=== PATIENT | female | born 1930 | race Caucasian/White ===

== ENCOUNTER 2016-12-15 17:52 | Emergency (ER) | payer OTHER ==
[2016-12-15] MEDS ORDERED: SODIUM CHLORIDE 0.9% (FLUSH) 10 ML SYG IV PRN (18:08)
[2016-12-15] MEDS ORDERED: ASPIRIN TABLET 325 MG TAB PO ONE (18:08)
--- NOTE | 2016-12-15 18:15 | ED.PDOC ---
History of Present Illness - General Chief Complaint: Chest Pain/[place] Time Seen by Provider: 12/15/16 18:08 Source: patient, family - History of Present Illness Initial Comments: SHE HAS KNOWN CAD WITH A BYPASS 8 YEARS AGO. SHE TRAVELED FROM [place] TODAY AND STARTED WITH SOME ABDOMINAL PAIN THAT THEN RADIATED TO THE CHEST. SHE HAS NTG BUT TWO WEEKS AGO IN [facility] NTG MADE HER VERY HYPOTENSIVE. SHE IS SOMEWHAT AFRAID TO TAKE IT. THE CP IS PRESSURE TYPE W/O RADIATION ASSOCIATED WITH MILD SOB. SHE RATES THE PAIN AT A 6/10. SHE ALSO HAS EPIGASTRIC PAIN 6/10. DENIES ANY DIAPHORESIS. Timing/Duration: 1-3 hours Severity/Quality: burning, tightness Location: substernal, epigastric, abdomen Chest Pain Radiation: no radiation Activities at Onset: rest Prior Chest Pain/Cardiac Workup: angina, heart attack, other - KNOWN CAD WITH CORONARY BYPASS SURGERY. SEES HER RENEWALS REPRESENTATIVE IN [place] FREQUENTLY. Improving Factors: nothing Worsening Factors: nothing Nitro Today/Relief: no nitro taken today Aspirin Treatment Today: no aspirin today Associated Symptoms: abdominal pain, fatigue, heartburn, shortness of breath Allergies/Adverse Reactions: Allergies NO KNOWN ALLERGY Allergy (Verified 12/15/16 18:08) Home Medications: Ambulatory Orders Amiodarone HCl 200 mg PO DAILY 12/15/16 Apixaban [Eliquis] 2.5 mg PO DAILY 12/15/16 Furosemide [Lasix] 40 mg PO DAILY 12/15/16 Isosorbide Dinitrate 30 mg PO DAILY 12/15/16 Levothyroxine Sodium 75 mcg PO DAILY 12/15/16 Lisinopril 2.5 mg PO DAILY 12/15/16 Multiple Vitamins W/ Minerals [Hair Skin and Nails Formu] 1 tab PO DAILY Potassium Chloride [Potassium Chloride ER] 20 meq PO DAILY 12/15/16 Simvastatin 40 mg PO DAILY 12/15/16 Review of Systems - Review of Systems Constitutional: Denies: chills, fever EENTM: States: no symptoms reported Respiratory: States: short of breath Cardiology: States: chest pain. Denies: edema, palpitations, syncope Gastrointestinal/Abdominal: States: no symptoms reported Genitourinary: States: no symptoms reported Musculoskeletal: States: no symptoms reported Skin: States: no symptoms reported Neurological: States: no symptoms reported Endocrine: States: no symptoms reported Hematologic/Lymphatic: States: no symptoms reported All other Systems: Reviewed and Negative, No Change from Baseline Past Medical History (General) - Patient Medical History Hx Cardiac Disorders: Yes - Social History Hx Tobacco Use: No Hx Alcohol Use: No Family Medical History - Family History Mother Living Status: Cause of : Cardiac Hx Cardiac Disease: Yes Physical Exam - Physical Exam General Appearance: Alert, Well Developed, Well Groomed, Other - IN MILD DISTRESS Eyes, Ears, Nose, Throat Exam: PERRL/EOMI, normal ENT inspection Neck: non-tender, full range of motion, normal inspection Respiratory: chest non-tender, lungs clear, no respiratory distress Cardiovascular/Chest: normal peripheral pulses, regular rate, rhythm, no edema, no gallop Peripheral Pulses: radial,right: 2+, radial,left: 2+ Gastrointestinal/Abdominal: normal bowel sounds, soft, no organomegaly, no pulsatile mass Rectal Exam: deferred Extremity: normal range of motion Neurologic: alert, oriented x 3 Skin Exam: normal color, warm/dry Lymphatic: no adenopathy Progress - Progress Progress: 12/15/16 18:22 THE EKG: IMPRESSION: SINUS RHYTHM, NO ACUTE INJURY PATTERN. THERE ARE NO TRACES TO COMPARE WITH 12/15/16 22:13 the lab is reported abd the imaging too. HER CREATININE WAS 1.39 AND THE BUN WAS 38. RST OF THE CMP WAS NORMAL. H/H OF 14.8/45.2, TOPONIN I OF 0.03, UA WITH 5-10 WBC'S. THE CXR WITH A WIDENED MEDIASTINUM. I DISCUSSED THE CASE WITH THE FAMILY AND THEY ARE NOT AWARE OF AN AORTIC ANUERYSM. BECSUE HER CREATININE AND BUN WERE ELEVATED A CT OF THE CHEST WAS PERFORMED W/O DYE. THE CT REVEALS AN ANEURYSM OF THE ASCENDING AORTA OF 4.9 CM AND AN INFRA-RENAL ANEURYSM MEASURING 4.2 CM. 12/15/16 22:30 I HAVE SPENT SOME TIME TALKING TO THE FAMILY AND TO THE PATIENT ABOUT THE FINDINGS. THEY ARE AWARE AND THE PATIENT VOICES THAT SHE WILL NOT HAVE ANY MOR SURGERY ON HER CHEST. SHE WILL CONTINUE WITH CONSERVATIVE TREATMENT ONLY. SHE HAS A RENEWALS REPRESENTATIVE IN [facility] AND SHE WILL FOLLOW NEXT WEEK WITH HER. - Results/Orders Results/Orders: LABORATORY AND IMAGING ARE REPORTED. THE CHEST X RAY HAS A WIDENED MEDIASTINUM THAT COULD BE A TORTOUS AORTA OR AN ANEURYSM. WILL OBTAIN A CT ANGIO OF THE CHEST. - EKG/XRAY/CT EKG: Sinus, no ST T wave changes Comments: HR OF 71, CA INTERVAL OF 200, QRS OF 92, QTC OF 436, AXIS OF 16 DEGREES. Departure - Departure Clinical Impression: Thoracic aortic aneurysm Qualifiers: Presence of rupture: without rupture Qualified Code(s): I71.2 - Thoracic aortic aneurysm, without rupture Chest pain Qualifiers: Chest pain type: unspecified Qualified Code(s): R07.9 - Chest pain, unspecified Abdominal pain Qualifiers: Abdominal location: epigastric Qualified Code(s): R10.13 - Epigastric pain Time of Disposition: 22:34 Disposition: Discharge to Home or Self Care Condition: Fair Departure Forms: ED Discharge - Pt. Copy, Patient Portal Self Enrollment Diet: resume usual diet Home Medications: Ambulatory Orders Amiodarone HCl 200 mg PO DAILY 12/15/16 Apixaban [Eliquis] 2.5 mg PO DAILY 12/15/16 Furosemide [Lasix] 40 mg PO DAILY 12/15/16 Isosorbide Dinitrate 30 mg PO DAILY 12/15/16 Levothyroxine Sodium 75 mcg PO DAILY 12/15/16 Lisinopril 2.5 mg PO DAILY 12/15/16 Multiple Vitamins W/ Minerals [Hair Skin and Nails Formu] 1 tab PO DAILY Potassium Chloride [Potassium Chloride ER] 20 meq PO DAILY 12/15/16 Simvastatin 40 mg PO DAILY 12/15/16 Additional Instructions: FOLLOW UP WITH YOUR RENEWALS REPRESENTATIVE NEXT WEEK
--- NOTE | 2016-12-15 18:28 | RAD ---
PROCEDURE: XR CHEST 1 VIEW HISTORY: CHEST PAIN COMPARISON: None TECHNIQUE: Single projection of the chest was done. FINDINGS: There is median sternotomy. . There are no discrete airspace infiltrates, pneumothoraces or pleural effusions. Multiple benign calcified granulomas are seen in the bilateral lung sotelo. The pulmonary vascularity is normal. Atherosclerotic changes in the thoracic aorta are noted, with suggestion of an aneurysm of the ascending thoracic aorta. The patient is slightly rotated to the right side The cardiomediastinal silhouette is otherwise unremarkable for patient's age and sex. IMPRESSION: Atherosclerotic changes in the thoracic aorta are noted, with suggestion of an aneurysm of the ascending thoracic aorta. Correlation with any prior studies can be obtained. Alternatively a CT of the chest can be done to further assess this finding There is no acute pleural-parenchymal process seen in the imaged lung sotelo. Electronically signed by: Allen Hannon MD 12/15/2016 6:26 PM CDT Workstation: [id number]
[2016-12-15] MEDS: ONDANSETRON INJ 4 MG/2 ML VIAL IV ONE (18:38)
[2016-12-15] MEDS ORDERED: PROMETHAZINE HCL INJ 25 MG/ML VIAL ONE (19:38)
[2016-12-15] MEDS ORDERED: SODIUM CHLORIDE 0.9% 50ML 50 ML ONE (19:38)
[2016-12-15] MEDS: PROMETHAZINE HCL INJ 12.5 MG in SODIUM CHLORIDE 0.9% 50ML 50 ML IVPB ONE (19:52)
[2016-12-15] MEDS: MORPHINE SULFATE INJ 10 MG/ML VIAL IV ONE (19:52)
--- NOTE | 2016-12-15 21:53 | CT ---
EXAM DESCRIPTION: Chest w/o Contrast CLINICAL HISTORY: WIDENED MEDIASTINUM LABS ARE TOO HIGH FOR IV CONTRAST COMPARISON: Chest radiograph same day TECHNIQUE: Axial CT images of the chest were acquired without administration of intravenous contrast. Coronal and sagittal reconstructions were obtained. This exam was performed according to our departmental dose-optimization program which includes use of Automated Exposure Control, adjustment of the mA and/or kV according to patient size and/or use of iterative reconstruction technique. FINDINGS: Neck base: Unremarkable. Mediastinum: Unremarkable. Lymph Nodes: No lymphadenopathy. Heart and pericardium: Cardiomegaly with coronary artery calcifications and mitral annular calcifications. Aorta: Aneurysmal dilatation of the ascending thoracic aorta measuring 4.9 cm. Moderate calcific atherosclerosis of the thoracic aorta. Pulmonary Artery: Enlarged pulmonary trunk and main pulmonary arteries. Central Airways: Patent. Pleura: No pneumothorax or pleural effusion. Lungs: Calcified granulomas are scattered throughout both lungs. Mild dependent atelectasis bilaterally. Postsurgical changes of the anterior left upper lobe. 3 mm left lower lobe subpleural nodule image 37 series 4. Upper abdomen: Partially visualized aneurysmal dilatation of the infrarenal abdominal aorta measuring 4.2 cm. Cholelithiasis. Small stones visualized at the ampulla, for example image 66 of series 2 measuring 3 mm. Bones and soft tissues: No acute osseous or soft tissue abnormalities. Small fat-containing ventral hernia just below the sternum. IMPRESSION: Aneurysmal dilatation of the ascending thoracic aorta measuring 4.9 cm. Partially visualized aneurysmal dilatation of the infrarenal abdominal aorta measuring 4.2 cm. Cholelithiasis and choledocholithiasis with a 3 mm stone within the ampulla. Enlarged pulmonary arteries as can be seen with pulmonary arterial hypertension. 3 mm subpleural left lower lobe nodule. If high risk consider follow-up chest CT in 12 months. If low risk no further follow-up is required. Sequela of prior granulomatous disease. Cardiomegaly. Electronically signed by: Puneet Jerome MD 12/15/2016 9:52 PM CDT
[2016-12-15 22:38] VITALS: BP 149/87; O2SAT 97
[2016-12-15 22:40] VITALS: TEMP 97.6
== END 2016-12-15 22:42 | disposition home or self-care (01) ==
LOC: ER 17:52
DX: I71.2 Thoracic aortic aneurysm, without rupture (principal); R07.9 Chest pain, unspecified; R10.13 Epigastric pain; I25.10 Atherosclerotic heart disease of native coronary artery without angina pectoris; Z95.1 Presence of aortocoronary bypass graft; Z79.01 Long term (current) use of anticoagulants; Z79.899 Other long term (current) drug therapy
CPT/HCPCS: 36415; 71010; 71250; 80048; 81001; 82550; 82553; 83880; 84484; 85025; 85610; 85730; 87086; 93005; A4216; J2270; J2405; J2550